=== PATIENT | male | born 2000 | race Caucasian/White ===

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

== ENCOUNTER 2022-03-27 19:33 | Emergency (ER) | payer OTHER ==
[~2022-03-27] VITALS: Ht 177.8 cm; Wt 81.8 kg
[~2022-03-27 19:33] MED LIST: ALBU8HFA4 IH
[2022-03-27] MEDS ORDERED: ALBU8HFA IH (19:47)
[2022-03-27] MEDS ORDERED: MIDAZOLAM HCL 2 MG/2 ML VIAL IVP ONE (23:15)
[2022-03-27] MEDS ORDERED: MIDAZOLAM HCL 5 MG/ML VIAL IVP ONE (23:30)
[2022-03-27] MEDS ORDERED: FentaNYL CITRATE PF 100 MCG/2 ML VIAL IVP ONE (23:45)
[2022-03-28] MEDS ORDERED: FentaNYL CITRATE PF 100 MCG/2 ML VIAL IVP ONE
[2022-03-28 01:00] VITALS: BP 130/78
== END 2022-03-28 01:55 | disposition home or self-care (01) ==
LOC: EMS 19:34
DX: S43.004A Unspecified dislocation of right shoulder joint, initial encounter (principal); W18.39XA Other fall on same level, initial encounter; Y93.89 Activity, other specified; Y92.89 Other specified places as the place of occurrence of the external cause; Y99.8 Other external cause status
CPT/HCPCS: 99285; 23650; 96374; 73030 ×2; 99152; 96375; J3010; J2250; 99284